=== PATIENT | male | born 1950 | race Caucasian/White ===

== ENCOUNTER 2017-03-01 07:29 | Inpatient (IN) | payer OTHER ==
[2017-02-17 11:03] VITALS: BMI 22.0
--- NOTE | 2017-02-17 11:28 | PAT Medication Instructions ---
Service Date Feb 17, 2017. Current Home Medication List Lisinopril/Hctz (Zestoretic 20MG/12.5MG), 1 TAB PO QAM Psyllium (Metamucil), 1 DOSE PO DAILY PRN for PRN Vitamins C & E (Vitamin C), 1 TAB PO QAM Medication Instructions For Your Scheduled Surgery - Hold the following medications the morning of surgery: Lisinopril/Hctz (Zestoretic 20MG/12.5MG), 1 TAB PO QAM Psyllium (Metamucil), 1 DOSE PO DAILY PRN for PRN Vitamins C & E (Vitamin C), 1 TAB PO QAM Nothing to eat or drink after midnight If you have any questions please call us at [phone] or [phone] or [phone]
[2017-02-17 11:55] LABS: BASO % 0.4 %; BASO ABS # 0.03 K/uL (0-0.2); COMPLETE YES; EOS % 1.6 %; IG% 0.3 %; LYMPH % 32.7 %; LYMPH ABS # 2.23 K/uL (1.2-3.4); MEAN CELL VOLUME 89.1 fL (80-100); MEAN CORPUSCULAR HEMOGLOBIN 29.8 pg (25-34); MEAN CORPUSCULAR HGB CONC 33.5 g/dl (32-36); MEAN PLATELET VOLUME 10.3 fL (7.4-10.4); MONO % 7.9 %; NEUT % 57.1 %; PLATELET COUNT 223 K/uL (130-400); WHITE BLOOD COUNT 6.81 K/uL (4.8-10.8)
[2017-02-17 11:56] LABS: MANUAL MICROSCOPIC REQUIRED? YES; URINE APPEARANCE CLEAR (CLEAR); URINE BILIRUBIN NEG (NEG); URINE COLOR YELLOW; URINE NITRITE NEG (NEG); URINE SPECIFIC GRAVITY 1.025 (1.000-1.030); UROBILINOGEN NEG (NEG)
[2017-02-17 11:59] LABS: REVIEW REQ? NO
--- NOTE | 2017-02-17 12:01 | DIAGNOSTIC IMAGING REPORT ---
CHEST PREADMISSION(PA/LAT) CLINICAL HISTORY: Preoperative chest COMPARISON STUDY: 01/15/2013 FINDINGS: The cardiac and mediastinal contours are normal. There is no evidence of focal pulmonary consolidation. There is no evidence of failure. No pleural effusions are visualized.[ Postsurgical changes are present within the lumbar spine. IMPRESSION: No active disease in the chest. Electronically signed by: Manoj Penaloza M.D. 02/17/2017 12:00 PM Dictated Date/Time: 02/17/2017 12:00 PM
[2017-02-17 12:34] LABS: URINE BACTERIA NEG (NEG); URINE RBC 0-4 /hpf (0-4)
[2017-02-17 13:28] LABS: BUN/CREATININE RATIO 16.6 (10-20); CALCIUM 9.4 mg/dl (8.5-10.1); CREATININE 1.1 mg/dl (0.60-1.40); POTASSIUM 5.1 mmol/L (3.5-5.1)
[2017-03-01] VITALS (9 sets, daily range): BP systolic 116–132; BP diastolic 64–87; PULSE 57–81; TEMP 35.8–36.9; O2SAT 93–98; Ht 175.3 cm; Wt 67.8 kg
[~2017-03-01] VITALS: Ht 175.3 cm; Wt 67.8 kg
[~2017-03-01 07:29] MED LIST: CEFAZOLIN 2000 MG/60 ML D5W IV SCH; CeleBREX 200 MG CAP PO SCH; LACTATED RINGER'S 1000ML 1,000 ML IV SCH; LISI-787 PO; PREGABALIN 75 MG CAP PO SCH; PSYL0.524 PO; VITACAP26 PO
[2017-03-01] MEDS ORDERED: EpHEDrine SULFATE INJ 50 MG/ML AMP IV PRN (08:00)
[2017-03-01] MEDS ORDERED: ATROPINE SULFATE 0.1 MG/ML 5ML SYR IV PRN (08:00)
[2017-03-01] MEDS ORDERED: FENTANYL CITRATE INJ 50 MCG/1 ML 2 ML VIAL IV PRN (08:00)
[2017-03-01] MEDS ORDERED: PROMETHAZINE HCL INJ 12.5 MG in SODIUM CHLORIDE 0.9% 50ML 50 ML IV PRN ×2 (08:00→11:45)
[2017-03-01] MEDS ORDERED: HYDROmorphone INJ 1 MG/ML SYR IV PRN (08:00)
[2017-03-01] MEDS ORDERED: ONDANSETRON INJ 2 MG/ML 2 ML VIAL IV PRN (08:00)
[2017-03-01] MEDS ORDERED: ONDANSETRON INJ 2 MG/ML 2 ML VIAL ONE (08:11)
[2017-03-01] MEDS ORDERED: LIDOCAINE HCL 2% 2 ML VIAL (20MG/ML) ONE (08:11)
[2017-03-01] MEDS ORDERED: FENTANYL CITRATE INJ 50 MCG/1 ML 2 ML VIAL ONE (08:11)
[2017-03-01] MEDS ORDERED: NEOSTIGMINE METHYLSULFATE 1 MG/ML 10ML VIAL ONE (08:11)
[2017-03-01] MEDS ORDERED: MIDAZOLAM HCL 1 MG/ML 2ML VIAL ONE (08:11)
[2017-03-01] MEDS ORDERED: PROPOFOL IV EMULSION 10 MG/ML 20 ML VIAL IV ONE (08:11)
[2017-03-01] MEDS ORDERED: GLYCOPYRROLATE INJ 0.2 MG/ML VIAL ONE ×2 (08:11→09:55)
[2017-03-01] MEDS ORDERED: ROCURONIUM BROMIDE 10 MG/ML 5 ML VIAL ONE (08:11)
[2017-03-01] MEDS ORDERED: DEXAMETHASONE SOD INJ 4 MG/ML VIAL ONE (08:11)
--- NOTE | 2017-03-01 08:45 | History & Physical Bridge Note ---
H&P Re-Evaluation Bridge Note: I have examined the patient, reviewed the History & Physical and in the interval since the performance of the History & Physical I have noted the following changes of clinical significance: No changes noted
[2017-03-01] MEDS ORDERED: BUPIVACAINE/EPINEPHRINE 0.5% MPF 1:200,000 10 ML VIAL ONE (09:00)
[2017-03-01] MEDS ORDERED: THROMBIN FOR SOLN 20000 UNIT KIT ONE ×2 (09:00→09:58)
[2017-03-01] MEDS ORDERED: THROMBIN 5000 UNITS KIT ONE (09:01)
[2017-03-01] MEDS ORDERED: HEPARIN SOD (PORCINE) 1000 UNIT/ML 10 ML VIAL ONE (09:01)
[2017-03-01] MEDS ORDERED: BACITRACIN 50000 UNIT VIAL ONE (09:01)
--- NOTE | 2017-03-01 09:43 | Discharge Instructions ---
Discharge Instructions Date of Service Mar 01, 2017. Admission Reason for Admission: Lumbar Spinal Stenosis Discharge Discharge Diagnosis / Problem: same Discharge Goals Goal(s): Decrease discomfort Activity Recommendations Activity Limitations: resume your previous activity . Instructions / Follow-Up Instructions / Follow-Up ACTIVITY RECOMMENDATIONS: SELF CARE INSTRUCTIONS AFTER THORACIC/LUMBAR FUSIONS 1. You may walk to your tolerance. It is good exercise for your legs and back. Expect some back and intermittent leg aches and pains. 2. You may perform "counter-top" level activities (make a sandwich, marisela with a project, etc.). 3. No bending or lifting of more than 10 pounds or back twisting of any nature (roll like a log when turning in bed). 4. You may ride in a car for 20-30 minutes at a time. No driving until after your first visit with your doctor. 5. Frequent changes of position and restricting sitting to 30 minutes at a time will help limit the amount of back spasms and stiffness you may experience. 6. You may discontinue the use of ambulatory aids (cane, crutches, etc.) once your strength and confidence allow. 7. You may insecticide expert the shower and let water strike your incision when you arrive home at least once daily. Do not take a tub bath, sit in a hot tub or go into a swimming pool until after your first recheck in the office. SPECIAL CARE INSTRUCTIONS: VERY IMPORTANT TO READ AND REVIEW A. Your surgical incision has been closed with a cosmetic suture under the skin that will dissolve in about 6 weeks. In 14 days, you can use a pair of clean scissors and cut the suture that is left outside of the skin at the ends of your incision. 1. The small skin tapes can be removed 7 days after surgery if they have not fallen off by that point. 2. You may keep the wound open to air as much as possible to promote healing after post-op day number 5 unless told otherwise by your doctor. 3. If you think the wound looks like it is becoming infected (redness or worsening drainage) and/or you are experiencing fever, chill or worsening back pain and muscle spasms, contact the office so that we may evaluate you as soon as possible. B. Complications are uncommon, but please contact us if you have any signs or symptoms of: 1. wound infection (fever higher than 102.5 degrees F, redness, separation of wound, drainage, or increasing pain from the incision) 2. blood clots in legs (pain, swelling, redness and warmth in legs) 3. urinary tract infection (fever higher than 102.5 degrees F, burning upon urination or increased frequency of urination) 4. nerve problems (inability to walk on your toes or heels, numbness, loss of bowel or bladder control) 5. any other symptoms that concern you C. Please call the office at if you have any concerns or questions about your operation or recovery. D. No smoking! Smoking drastically decreases the chance of a solid fusion. E. Do not take any anti-inflammatory medications (Indocin, Advil, Motrin, Aspirin, Naprosyn, etc.) as these may inhibit the chance of a solid fusion. Tylenol is okay to take for pain. MANAGING PAIN AFTER SPINAL SURGERY 1. Narcotic medication is intended for short-term use and will be provided for surgical pain. Surgical pain usually lasts for a period of 4-6 weeks. Narcotic medication includes Percocet, Vicodin, Darvocet, Tylenol #3 or Lortab. 2. Longer-term pain is more appropriately treated with non-narcotic medication such as Tylenol ES. 3. Muscle spasm is not appropriately treated with narcotics. Muscle relaxers such as Soma, Flexeril or Skelaxin can be used along with Tylenol ES. 4. Remember that we all live with some "aches and pains". This is not unusual or uncommon after an injury or as we get older. a. Back pain is expected and may include muscle spasms for 4 to 6 weeks after surgery. The pain should gradually improve. If the pain worsens for no apparent reason, please contact the office. b. Intermittent leg pain may also be experienced and should not be concerned about unless it worsens for no apparent reason. If so, please contact the office. 5. We will provide appropriate medication within the normal guidelines of their prescribed use. We will also be very cautious and aware of potential abuse and extended duration of patients' medication needs. a. Pain medications are for your comfort and to assist with sleep and rest so that the tissue can heal. They are not provided in order to return to normal activity and should not be used through the day. To do so or worsening pain at night can result from ongoing tissue damage and development of tolerance to the prescribed medicine. 6. Please allow 2-3 days to process refills. Prescriptions will not be mailed but must be picked up at the office. FOLLOW UP VISIT: Keep your scheduled follow-up appointment. Any questions, please call the office at . Current Hospital Diet Patient's current hospital diet: Discharge Diet Recommended Diet: Regular Diet Pending Studies Studies pending at discharge: no Medical Emergencies . Who to Call and When: Medical Emergencies: If at any time you feel your situation is an emergency, please call 911 immediately. . Non-Emergent Contact Non-Emergency issues call your: Surgeon . "Provider Documentation" section prepared by Rolf Galvin. . VTE Core Measure Inpt VTE Proph given/why not?: Marilyn Garner SCD's [place] Drug Monitoring Program Search Results: patient reviewed within database, no issues identified
[2017-03-01] MEDS ORDERED: PHENYLEPHRINE 100MCG/ML 5ML SYR ONE (09:44)
[2017-03-01] MEDS ORDERED: LARYING-O-JET KIT (LTA) ONE ×2 (09:44)
[2017-03-01] MEDS ORDERED: HYDROmorphone INJ 2 MG/ML SYR/VIAL ONE (09:45)
[2017-03-01] MEDS ORDERED: EpHEDrine SULFATE 50MG/5ML SYR ONE ×2 (09:55→10:53)
--- NOTE | 2017-03-01 11:28 | [facility] Post Operative Brief Note ---
Immediate Operative Summary Operative Date Mar 01, 2017. Pre-Operative Diagnosis severe spinal stenosis L3-4, L4-5, and marked disc degeneration with foraminal stenosis at L5-S1 Post-Operative Diagnosis severe spinal stenosis L3-4, L4-5, and marked disc degeneration with foraminal stenosis at L5-S1 Procedure(s) Performed L2-S1 Decompression and Instrumented Fusion; L2-L3 Hardware Removal; Interbody Fusion L4-5; Infuse; Bone Marrow Aspirate; Autograft; Allograft Surgeon Dr. Rolf Galvin World Language Teacher Surgeon(s) None Estimated Blood Loss 250ML Findings dict Specimens A. Lumbar Hardware Removal
[2017-03-01] MEDS ORDERED: SODIUM CHLORIDE 0.9% 1000ML 1,000 ML IV SCH (11:37)
--- NOTE | 2017-03-01 11:37 | [facility] Operative Report ---
Operative Report Operative Date Mar 01, 2017. Pre-Operative Diagnosis severe spinal stenosis L3-4, L4-5, and marked disc degeneration with foraminal stenosis at L5-S1 Post-Operative Diagnosis severe spinal stenosis L3-4, L4-5, and marked disc degeneration with foraminal stenosis at L5-S1 Procedure(s) Performed 1. L3, 4, 5 laminectomies 2. HWR L2-3 bilateral, and exploration fusion 3. Pedicle screw instr bilateral with K2M [place] screws L2-S1 4. [id number] fusion L2-S1 bilateral with INFUSE, BMA, local bone, and tri calcium phosphate 5. TLIF Left L4-5 6. R iliac crest bone marrow aspiration Surgeon Dr. Rolf Galvin Rn Anesthesiology Surgeon(s) None Estimated Blood Loss 250ML Findings dict Specimens A. Lumbar Hardware Removal Drains 1 Complication(s) None Description of Procedure After identification of the patient and the operative level they were brought to the OR where they underwent induction of general anesthesia. They were positioned prone on a Raciel spine table with all bony prominence well-padded. Care was taken to avoid pressure on the periorbital area. The lumbosacral area was sterilely prepped and draped in the usual fashion. Antibiotics were administered, a time-out was performed, level was confirmed, and skin incision was with localized lateral fluoroscopy and a spinal needle. The skin was infiltrated with half percent Marcaine with epinephrine. I then made skin incision from the spinous process of L1-S1. The dorsal fascia was incised and posterior exposure was accomplished with dissection out to the tips of the transverse processes from L2-S1 bilaterally. I then packed the gutters with thrombin-soaked sponges. After identification of the appropriate level I placed Gelpi retractors and proceeded to perform midline decompression. Laminectomies of L3, 4, and 5 were performed in the midline with takedown of the intervening ligamentum flavum. I then used an osteotome to remove the medial facets at L3-S1. Facet hypertrophy and degenerative changes were noted at the operative levels. I then completed decompression with Kerrison rongeurs and palpated the nerve roots were adequately decompressed at the operative levels from L3-S1 bilaterally. I palpated all nerve roots were decompressed adequately. I then obtained hemostasis of epidural bleeding with bipolar cautery and Surgiflo. I removed the screws at L2-3 bilaterally and explored the fusion. There was no motion but a paucity of fusion in the lateral gutters. I then proceeded to place pedicle screws bilaterally at L2-S1 with bony anatomy confirmed to be intact with the ball-tipped feeler. I confirmed screw length, trajectory, and position with fluoroscopy. Following this I turned my attention to the L4-5 disc space and prepared the disc space for subsequent cage introduction with a combination of jagruti and curettes. I determined cage size with paddle distractors. I then packed a titanium mesh interbody cage with bone graft mixture. Bone graft consisted of morselized local bone from laminectomy bone as well as bone graft cell tuber machine saturated with stem cell concentrate. I obtained stem cell concentrate using a stem cell concentration system after aspiration of bone marrow from the right iliac crest via a separate stab incisions with a Jamshidi needle. I then applied this to bone graft cell tuber machine. I then inserted the appropriately sized cage into the disc space and confirmed stability. Fluoroscopy confirmed appropriate cage placement. I then lowered the Marshal frame to restore lordosis. I applied rods and end caps bilaterally with final tightening of all caps. I applied a cross link. I irrigated with bacitracin solution. I then decorticated the transverse processes bilaterally at the operative levels from L2-S1 as well as facet joints with a high-speed bur. I then packed the lateral gutters and facets with the bone graft mixture consisting of: infuse BMP and a collagen sponge, tricalcium phosphate logs, stem cell concentrate, morcellized local bone , and bone graft cell tuber machine. I then confirmed hemostasis and closed in a layered fashion over a MARLI drain. All sponge and needle counts were correct in the case. Please note my PA-C participated in all portions of the procedure and was critical for performance of the procedure by assisting in positioning, prepping, draping, suction, retraction, and wound closure. I attest to the content of the Intraoperative Record and any orders documented therein. Any exceptions are noted below.
--- NOTE | 2017-03-01 11:40 | DIAGNOSTIC IMAGING REPORT ---
LUMBAR SPINE, INTRAOPERATIVE FLUOROSCOPY HISTORY: L3-S1 posterior decompression fusion. FLUOROSCOPY TIME: 4 seconds. FINDINGS: Intraoperative fluoroscopy was provided for the lumbar spine. 3 fluoroscopic spot images were obtained. Posterior decompression fusion from L2 through S1 with pedicle screws and rods. The hardware appears intact. There is a surgical drain at the laminectomy sites. IMPRESSION: Fluoroscopy provided for a L2-S1 posterior decompression and fusion. Electronically signed by: Nahum Mercedes M.D. 03/01/2017 11:39 AM Dictated Date/Time: 03/01/2017 11:38 AM
[2017-03-01] MEDS ORDERED: SOD PHOSPHATE/SOD BIPHOSPHATE ENEMA 132 ML BTL PR PRN (11:45)
[2017-03-01] MEDS ORDERED: ALUMINUM/MAGNESIUM SUSP 30 ML UDC PO PRN (11:45)
[2017-03-01] MEDS ORDERED: BISACODYL 10 MG SUPP PR PRN (11:45)
[2017-03-01] MEDS ORDERED: LORAZEPAM INJ 0.5 MG in SYRINGE 0.75 ML IV PRN (11:45)
[2017-03-01] MEDS ORDERED: ACETAMINOPHEN IV 100 ML IV PRN (11:45)
[2017-03-01] MEDS ORDERED: hydrOXYzine HCL 25 MG TAB PO PRN (11:45)
[2017-03-01] MEDS ORDERED: MAGNESIUM HYDROXIDE SUSP 30 ML UDC PO PRN (11:45)
[2017-03-01] MEDS ORDERED: NALOXONE HCL 0.4 MG/1 ML VIAL/CARP IV PRN ×2 (11:45)
[2017-03-01] MEDS ORDERED: FAMOTIDINE 20 MG TAB PO PRN (11:45)
[2017-03-01] MEDS ORDERED: LORAZEPAM 0.5 MG TAB PO PRN (11:45)
[2017-03-01] MEDS ORDERED: ACETAMINOPHEN 500 MG TAB PO PRN (11:45)
[2017-03-01] MEDS ORDERED: METOCLOPRAMIDE HCL INJ 5 MG/ML 2 ML VIAL IV PRN (11:45)
[2017-03-01] MEDS ORDERED: HYDROmorphone HCL 0.5MG/ML 50 ML CASSETTE ONE (12:01)
--- NOTE | 2017-03-01 12:41 | Anesthesiology Progress Note ---
Anesthesia Post Op Note Date & Time Mar 01, 2017 at 12:41 Vital Signs Pain Intensity: 0 Vital Signs Past 12 Hours Date Time Temp Pulse Resp B/P (MAP) Pulse Ox O2 Delivery O2 Flow Rate FiO2 03/01/17 11:52 36 79 20 135/80 99 Oxymask 15 03/01/17 07:53 36.9 57 20 132/87 97 Notes Mental Status: alert / awake / arousable, participated in evaluation Pt Amnestic to Procedure: Yes Nausea / Vomiting: adequately controlled Pain: adequately controlled Airway Patency, RR, SpO2: stable & adequate BP & HR: stable & adequate Hydration State: stable & adequate Anesthetic Complications: no major complications apparent
[2017-03-01] MEDS: SODIUM CHLORIDE 0.9% 1000ML 1,000 ML IV SCH (14:20)
[2017-03-01] MEDS: HYDROmorphone HCL 0.5MG/ML 50 ML CASSETTE IV PRN ×2 (14:59→22:59)
[2017-03-01] MEDS: DEXAMETHASONE INJ 6 MG in SYRINGE 0 ML IV SCH (18:07)
[2017-03-01] MEDS: ONDANSETRON INJ 2 MG/ML 2 ML VIAL IV PRN (18:15)
[2017-03-01] MEDS: CEFAZOLIN IV 1,000 MG in DEXTROSE 5% 50ML 50 ML IV SCH (20:25)
[2017-03-01] MEDS: DOCUSATE SODIUM/SENNA 50/8.6MG TAB PO SCH (21:09)
[2017-03-02] VITALS (9 sets, daily range): BP systolic 96–117; BP diastolic 52–67; PULSE 61–74; TEMP 36.4–36.7; O2SAT 91–93
[2017-03-02] MEDS: ONDANSETRON INJ 2 MG/ML 2 ML VIAL IV PRN (01:54)
[2017-03-02] MEDS: SODIUM CHLORIDE 0.9% 1000ML 1,000 ML IV SCH (01:54)
[2017-03-02] MEDS: DEXAMETHASONE INJ 6 MG in SYRINGE 0 ML IV SCH ×2 (02:00→10:00)
[2017-03-02] MEDS: CEFAZOLIN IV 1,000 MG in DEXTROSE 5% 50ML 50 ML IV SCH (03:55)
--- NOTE | 2017-03-02 05:39 | Orthopedic Progress Note ---
Orthopedic Progress Note Date of Service Mar 02, 2017. 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, Denies: complaints, chest pain, SOB, nausea / vomiting, light headedness, calf pain Objective calves soft nontender, N/V intact, dressing C/D/I, A&O x3, hemovac drainage Date Time Temp Pulse Resp B/P (MAP) Pulse Ox O2 Delivery O2 Flow Rate FiO2 03/02/17 03:21 36.7 74 16 108/62 (77) 93 Room Air 03/02/17 00:00 Room Air 03/01/17 22:49 36.7 67 16 120/64 (82) 97 Room Air 03/01/17 18:52 36.5 71 17 125/67 (86) 93 Room Air 03/01/17 17:36 Nasal Cannula 4.0 03/01/17 17:10 36.5 74 17 120/75 (90) 97 Room Air 03/01/17 16:09 36.4 68 18 121/73 (89) 98 Nasal Cannula 4.0 03/01/17 15:10 36.4 76 17 117/72 (87) 98 Nasal Cannula 4.0 03/01/17 14:10 35.8 81 17 122/73 (89) 96 Nasal Cannula 4.0 03/01/17 13:40 36.6 76 19 116/70 (85) 95 Nasal Cannula 4.0 03/01/17 13:10 36.3 16 129/72 (91) 94 Nasal Cannula 4.0 03/01/17 13:10 Nasal Cannula 4.0 03/01/17 13:10 Nasal Cannula 03/01/17 12:45 36.1 86 20 133/62 99 Nasal Cannula 2 03/01/17 12:42 61 14 03/01/17 12:42 60 14 98 03/01/17 12:41 122/70 03/01/17 12:37 68 15 98 03/01/17 12:37 68 15 03/01/17 12:36 149/77 03/01/17 12:32 83 16 03/01/17 12:32 83 16 124/76 99 03/01/17 12:27 79 10 03/01/17 12:27 79 10 100 03/01/17 12:26 138/74 03/01/17 12:22 84 23 100 03/01/17 12:22 84 23 03/01/17 12:21 135/81 03/01/17 12:17 70 13 03/01/17 12:17 68 13 98 03/01/17 12:16 141/84 03/01/17 12:12 79 24 03/01/17 12:12 79 24 100 03/01/17 12:11 143/81 03/01/17 12:07 60 13 100 03/01/17 12:07 61 13 03/01/17 12:06 156/78 03/01/17 12:02 87 21 128/73 03/01/17 11:52 36 79 20 135/80 99 Oxymask 15 03/01/17 11:52 89 12 127/88 99 03/01/17 07:53 36.9 57 20 132/87 97 Laboratory Results 24 Hours: Test 03/02/17 05:18 Assessment & Plan Assessment: stable Plan: PT, SCDs, monitor hgb
[2017-03-02] MEDS ORDERED: DC PCA SCH (06:00)
[2017-03-02] MEDS ORDERED: NURSING DECISION MEDICATION ORDER SCH (06:00)
[2017-03-02] MEDS ORDERED: HYDROmorphone INJ 1 MG/ML SYR IV PRN (06:00)
[2017-03-02] MEDS ORDERED: HYDROmorphone INJ 0.5 MG/0.5 ML SYR IV PRN (06:00)
[2017-03-02 06:20] LABS: COMPLETE YES; HEMATOCRIT 34.6 % (42-52); IG% 0.2 %; LYMPH % 5.8 %; LYMPH ABS # 0.87 K/uL (1.2-3.4); MEAN CORPUSCULAR HEMOGLOBIN 29.5 pg (25-34); MEAN CORPUSCULAR HGB CONC 33.5 g/dl (32-36); MEAN PLATELET VOLUME 10.5 fL (7.4-10.4); MONO % 3.1 %; NEUT % 90.9 %; PLATELET COUNT 167 K/uL (130-400); RED BLOOD COUNT 3.93 M/uL (4.7-6.1); WHITE BLOOD COUNT 14.98 K/uL (4.8-10.8)
[2017-03-02 06:58] LABS: BUN/CREATININE RATIO 15.3 (10-20); CALCIUM 8.3 mg/dl (8.5-10.1); CREATININE 1.1 mg/dl (0.60-1.40); POTASSIUM 4.4 mmol/L (3.5-5.1)
[2017-03-02] MEDS: OXYCODONE HCL IR 5 MG TAB (IMMEDIATE RELEASE) PO PRN (08:46)
[2017-03-02] MEDS: LISINOPRIL/HCTZ 20/12.5MG TAB PO SCH (08:46)
--- NOTE | 2017-03-02 10:26 | Anesthesiology Progress Note ---
Anesthesia Post Op Note Date & Time Mar 02, 2017 at 10:26 Vital Signs Pain Intensity: 2.0 Vital Signs Past 12 Hours Date Time Temp Pulse Resp B/P (MAP) Pulse Ox O2 Delivery O2 Flow Rate FiO2 03/02/17 08:23 91 Room Air 03/02/17 07:57 36.6 61 14 102/58 (73) 91 Room Air 03/02/17 07:15 93 Room Air 03/02/17 03:21 36.7 74 16 108/62 (77) 93 Room Air 03/02/17 00:00 Room Air 03/01/17 22:49 36.7 67 16 120/64 (82) 97 Room Air Notes Mental Status: alert / awake / arousable, participated in evaluation Pt Amnestic to Procedure: Yes Nausea / Vomiting: adequately controlled Pain: adequately controlled Airway Patency, RR, SpO2: stable & adequate BP & HR: stable & adequate Hydration State: stable & adequate Anesthetic Complications: no major complications apparent
[2017-03-02] MEDS: DOCUSATE SODIUM/SENNA 50/8.6MG TAB PO SCH (21:01)
[2017-03-03] MEDS ORDERED: POLYETHYLENE (MIRALAX) 17 GM PACK PO SCH (06:00)
[2017-03-03 07:46] VITALS: BP 132/70; PULSE 64; TEMP 36.8; O2SAT 93
[2017-03-03 07:51] VITALS: O2SAT 93
[2017-03-03] MEDS: LISINOPRIL/HCTZ 20/12.5MG TAB PO SCH (08:52)
[2017-03-03] MEDS ORDERED: NURSING VERBAL MED ORDER ONE (09:00)
[2017-03-03] MEDS ORDERED: RXC5 PO (12:10)
--- NOTE | 2017-03-03 12:12 | Discharge Summary ---
Orthopedic Discharge Summary Admission Date/Reason Mar 01, 2017 at 09:00 Lumbar Spinal Stenosis. Discharge Date/Disposition Mar 03, 2017 Home Diagnosis Principal Diagnosis: same Procedure(s) Performed lumbar fusion Medication Reconciliation New Medications: Oxycodone HCl (Oxycodone HCl) 5 Mg Tab 5-10 MG PO Q4H PRN for Moderate - severe pain, #90 TAB Continued Medications: Lisinopril/Hctz (Zestoretic 20MG/12.5MG) Tab 1 TAB PO QAM, TAB Psyllium (Metamucil) 0.52 Gm Cap 1 DOSE PO DAILY PRN for PRN Vitamins C & E (Vitamin C) 1 Cap Cap 1 TAB PO QAM Admission Physical Exam As per Admitting History & Physical. Hospital Course Patient was admitted for elective lumbar fusion, tolerated the procedure, was stable on floor, had pain controlled and d/c d home in stable condition after PT and return of bowel function. Discharge Instructions Please refer to the electronic Patient Visit Report (Discharge Instructions) for additional information.
[2017-03-03 13:32] VITALS: BP 132/70; PULSE 64; TEMP 36.8; O2SAT 93
[2017-03-03] MEDS: OXYCODONE HCL IR 5 MG TAB (IMMEDIATE RELEASE) PO PRN (13:44)
== END 2017-03-03 14:21 | disposition home or self-care (01) | DRG 460 ==
LOC: C.ACU 07:29 → C.3E 09:00 → ENRESERV 12:48
PROVIDERS: ADMIT Orthopaedic Surgery Orthopaedic Surgery of the Spine; ATTEND Orthopaedic Surgery Orthopaedic Surgery of the Spine
PROC: 0SG3071 Fusion of Lumbosacral Joint with Autologous Tissue Substitute, Posterior Approach, Posterior Column, Open Approach (ICD-10-PCS; principal; 2017-03-01 09:00)
PROC: 0SP004Z Removal of Internal Fixation Device from Lumbar Vertebral Joint, Open Approach (ICD-10-PCS; principal; 2017-03-01 09:00)
PROC: 0SG00AJ Fusion of Lumbar Vertebral Joint with Interbody Fusion Device, Posterior Approach, Anterior Column, Open Approach (ICD-10-PCS; principal; 2017-03-01 09:00)
PROC: 0SB20ZZ Excision of Lumbar Vertebral Disc, Open Approach (ICD-10-PCS; principal; 2017-03-01 09:00)
PROC: 3E0U0GB Introduction of Recombinant Bone Morphogenetic Protein into Joints, Open Approach (ICD-10-PCS; principal; 2017-03-01 09:00)
PROC: 0SG1071 Fusion of 2 or more Lumbar Vertebral Joints with Autologous Tissue Substitute, Posterior Approach, Posterior Column, Open Approach (ICD-10-PCS; principal; 2017-03-01 09:00)
DX: M48.06 Spinal stenosis, lumbar region (principal); M51.36 Other intervertebral disc degeneration, lumbar region; I10 Essential (primary) hypertension; M19.90 Unspecified osteoarthritis, unspecified site; F17.210 Nicotine dependence, cigarettes, uncomplicated; Z98.1 Arthrodesis status; Z79.899 Other long term (current) drug therapy